=== PATIENT | male | born 1955 | race African-American/Black ===

== ENCOUNTER 2017-10-18 03:57 | Emergency (ER) | payer OTHER ==
--- NOTE | 2017-10-18 04:21 | ER Document Report ---
ED GI/ <ALLEN CHICAS - Last Filed: 10/18/17 07:53> - General TRAVEL OUTSIDE OF THE [place] IN LAST 30 DAYS: No <KEDAR SCHULTZ - Last Filed: 10/18/17 19:31> - General Chief Complaint: Urinary Problem Stated Complaint: POSSIBLE BLOOD IN URINE Time Seen by Provider: 10/18/17 04:14 Notes: Patient is a 61-year-old male comes emergency department for chief complaint of hematuria. He has noticed it for the past couple of days. He does report some minimal tenderness in his right flank area as well. He denies nausea or vomiting, abdominal pain, dysuria, fever or chills. He states he thinks he has had kidney stones before but is not certain. He smokes. Limited past medical history including BPH, surgeries (appendix, gallbladder, hernia), and he is a smoker. No daily meds. (KATJA SCHULTZAN) - Related Data Allergies/Adverse Reactions: No Known Allergies Allergy (Verified 08/02/16 00:53) Home Medications: Current Home Medications No Home Medications 10/18/17 [History] Past Medical History - General Information source: Patient - Social History Smoking Status: Current Every Day Smoker Smoking Education Provided: Yes - <3 min Frequency of alcohol use: None Drug Abuse: None Lives with: Spouse/Significant other Family History: Reviewed & Not Pertinent Patient has suicidal ideation: No Patient has homicidal ideation: No Renal/ Medical History: Reports: Hx Benign Prostatic Hyperplasia, Hx Kidney Stones. Denies: Hx Peritoneal Dialysis Past Surgical History: Reports: Hx Appendectomy, Hx Cholecystectomy, Hx Nose Surgery - Immunizations Hx Diphtheria, Pertussis, Tetanus Vaccination: Yes <KEDAR SCHULTZ - Last Filed: 10/18/17 19:31> Review of Systems - Review of Systems Constitutional: No symptoms reported EENT: No symptoms reported Cardiovascular: No symptoms reported Respiratory: No symptoms reported Gastrointestinal: No symptoms reported Genitourinary: See HPI Male Genitourinary: No symptoms reported Musculoskeletal: No symptoms reported Skin: No symptoms reported Hematologic/Lymphatic: No symptoms reported Neurological/Psychological: No symptoms reported <KEDAR SCHULTZ - Last Filed: 10/18/17 19:31> Physical Exam - Vital signs Interpretation: Normal - General General appearance: Appears well, Alert In distress: None - HEENT Head: Normocephalic, Atraumatic Eyes: Normal Pupils: PERRL Mouth/Lips: Normal Mucous membranes: Normal Pharynx: Normal Neck: Normal - Respiratory Respiratory status: No respiratory distress Chest status: Nontender Breath sounds: Normal. No: Decreased air movement, Wheezing Chest palpation: Normal - Cardiovascular Rhythm: Regular Heart sounds: Normal auscultation Murmur: No - Abdominal Inspection: Normal Distension: No distension Bowel sounds: Normal Tenderness: Nontender. No: Tender, Guarding Organomegaly: No organomegaly - Back Back: Normal, Nontender. No: Tender, CVA tenderness - Extremities General upper extremity: Normal inspection, Nontender, Normal ROM, Normal strength General lower extremity: Normal inspection, Nontender, Normal ROM, Normal strength - Neurological Neuro grossly intact: Yes Cognition: Normal Orientation: AAOx4 [place] Coma Scale Eye Opening: Spontaneous [place] Coma Scale Verbal: Oriented [place] Coma Scale Motor: Obeys Commands [place] Coma Scale Total: 15 Speech: Normal Motor strength normal: LUE, RUE, LLE, RLE Sensory: Normal - Psychological Associated symptoms: Normal affect, Normal mood - Skin Skin Temperature: Warm Skin Moisture: Dry Skin Color: Normal <ANTOINE,KEDAR - Last Filed: 10/18/17 19:31> - Vital signs Vitals: Temp Pulse Resp BP Pulse Ox 98.2 F 75 16 132/71 H 99 10/18/17 03:59 10/18/17 03:59 10/18/17 03:59 10/18/17 03:59 10/18/17 03:59 Course - Laboratory Result Diagrams: 10/18/17 04:42 10/18/17 04:42 <ALLEN CHICAS - Last Filed: 10/18/17 07:53> - Laboratory Result Diagrams: 10/18/17 04:42 10/18/17 04:42 <KEDAR SCHULTZ - Last Filed: 10/18/17 19:31> - Re-evaluation Re-evalutation: 10/18/17 07:53 Dr. German, urologist Hardeep Yang called back and was informed of all results. He states that he can follow-up in 1 week and to send him home with antibiotics, a copy of the CAT scan disc and report to follow-up with him in the office. Urine culture is pending at this time. (ALLEN CHICAS) Patient calm and well-appearing. No CVA tenderness. Vital signs unremarkable. CBC does not show anemia, kidney functioning is normal. Patient states his pain is 1 out of 5 in the right flank, intermittent. He definitely has hematuria, this was tested, show some white blood cells and reagan hematuria with proteinuria. CAT scan was performed to further evaluate for stone or other abnormality because of flank pain and hematuria. CT without contrast shows questionable cyst versus severe obstruction, patient' s presentation does not suggest severe obstruction. Patient states that he remembers he was told that his kidney "has some weird blood supply to it". He cannot tell me any other details. Discussed with Dr. Barone, recommends CAT scan of the abdomen and pelvis with IV contrast to help better characterize. ( KEDAR SCHULTZ) - Vital Signs Vital signs: Temp Pulse Resp BP Pulse Ox 97.9 F 72 16 137/99 H 100 10/18/17 08:06 10/18/17 08:06 10/18/17 08:06 10/18/17 08:06 10/18/17 08:06 - Laboratory Laboratory results interpreted by me: 10/18/17 10/18/17 10/18/17 04:42 04:42 05:11 WBC 3.9 L Chloride 108 H Urine Protein 100 H Urine Blood LARGE H Discharge <ALLEN CHICAS - Last Filed: 10/18/17 07:53> <KEDAR SCHULTZ - Last Filed: 10/18/17 19:31> - Discharge Clinical Impression: Ureteral obstruction Hydronephrosis Qualifiers: Hydronephrosis type: with ureteropelvic junction obstruction Qualified Code(s) : Q62.11 - Congenital occlusion of ureteropelvic junction Condition: Stable Disposition: HOME, SELF-CARE Additional Instructions: Return immediately for any new or worsening symptoms. Follow up with urologist in 1 week exactly! You can go to the one below or Dr. German is who I consulted with today on your case and he is in [facility] Office [address] [place], [place] [phone] [place] [facility] [address] [facility]. [place], [place] [phone]. Referrals: MONSTER GERMAN MD [NO LOCAL MD] - Follow up as needed
[2017-10-18 04:54] LABS: ABSOLUTE EOSINOPHILS # (AUTO) 0.1 10^3/uL (0.0-0.6); ABSOLUTE LYMPHOCYTES (AUTO) 1.2 10^3/uL (0.5-4.7); ABSOLUTE MONOCYTES (AUTO) 0.3 10^3/uL (0.1-1.4); ABSOLUTE NEUT (AUTO) 2.3 10^3/uL (1.7-8.2); BASOPHILS % (AUTO) 0.3 % (0-2); EOSINOPHILS % (AUTO) 2.4 % (0-6); HEMATOCRIT 41.2 % (37.9-51.0); HEMOGLOBIN 14.1 g/dL (13.5-17.0); HGB HCT DIFFERENCE 1.1; LYMPHOCYTES % (AUTO) 30.5 % (13-45); MEAN CORPUSCULAR HEMOGLOBIN 31.9 pg (27.0-33.4); MEAN CORPUSCULAR HGB CONC 34.3 g/dL (32.0-36.0); MEAN CORPUSCULAR VOLUME 93 fl (80-97); MONOCYTES % (AUTO) 8.5 % (3-13); RED BLOOD COUNT 4.42 10^6/uL (4.35-5.55); RED CELL DISTRIBUTION WIDTH 13.2 % (11.5-14.0); SEGMENTED NEUTROPHILS % (AUTO) 58.3 % (42-78); WHITE BLOOD COUNT 3.9 10^3/uL (4.0-10.5)
[2017-10-18 05:03] LABS: ANION GAP 10 (5-19); BLOOD UREA NITROGEN 16 mg/dL (7-20); CALCIUM 9.4 mg/dL (8.4-10.2); CARBON DIOXIDE 25 mmol/L (22-30); CHLORIDE 108 mmol/L (98-107); CREATININE RESULT 0.89 mg/dL (0.52-1.25); GLUCOSE 96 mg/dL (75-110)
[2017-10-18 06:00] LABS: AMORPHOUS SEDIMENT,URINE TRACE /HPF; APPEARANCE,URINE SLIGHTLY-CLOUDY; BILIRUBIN,URINE NEGATIVE (NEGATIVE); GLUCOSE, URINE NEGATIVE (NEGATIVE); KETONES,URINE NEGATIVE (NEGATIVE); LEUKOCYTE ESTERASE,URINE NEGATIVE (NEGATIVE); NITRITE,URINE NEGATIVE (NEGATIVE); PROTEIN,URINE 100 mg/dL (NEGATIVE); URINE SPECIFIC GRAVITY 1.015; UROBILINOGEN,URINE NEGATIVE mg/dL (<2.0)
--- NOTE | 2017-10-18 06:18 | RADIOLOGY REPORT (SQ) ---
EXAM DESCRIPTION: CT LTD RENAL STONE PROTOCOL ON CLINICAL HISTORY: 61 years Male, FLANK PAIN, HEMATURIA COMPARISON: None. TECHNIQUE: No contrast. Coronal and sagittal reformat. This exam was performed according to our departmental dose-optimization program, which includes automated exposure control, adjustment of the mA and/or kV according to patient size and/or use of iterative reconstruction technique. FINDINGS: Severe hydronephrosis on the right suggest ureteropelvic junction obstruction. There may be associated parapelvic cyst measuring up to 8.6 cm. no significant stone. Mild bibasal atelectasis or scar. Left lateral hepatic likely benign cysts or hemangiomata measure up to 1.1 cm each. Minimal hiatal hernia. Cholecystectomy clips. Atherosclerosis. Mild spondylosis between the L4 and S1 levels. Unenhanced chxyr-[id number]-[id number] structures and musculoskeleton appear otherwise grossly intact. IMPRESSION: Severe right UPJ obstruction pattern. Differential diagnosis includes large parapelvic cysts. Contrast CT/IVP evaluation and/or urology consultation recommended.
--- NOTE | 2017-10-18 07:23 | RADIOLOGY REPORT (SQ) ---
EXAM DESCRIPTION: CT ABD/PELVIS WITH IV ONLY CLINICAL HISTORY: 61 years Male, evaluate right kidney; ?cyst vs hydro COMPARISON: CT, same day. TECHNIQUE: IV contrast. Coronal and sagittal reformatted. This exam was performed according to our departmental dose-optimization program, which includes automated exposure control, adjustment of the mA and/or kV according to patient size and/or use of iterative reconstruction technique. FINDINGS: Severe right hydronephrosis appears due to ureteropelvic junction obstruction. No stone. Postexcretion imaging show minimal layering of fluid in only two of the posterior right renal expanded calyces. No contrast identified in the right ureter. Likely benign 1.1 cm cyst of the right renal upper pole. There is moderate compression of cortical parenchyma. Hydronephrotic right kidney measures 15.4 cm compared with 12.67 m on the left. Minimal right perinephric fat stranding. Cholecystectomy. Atherosclerosis. Mild dilated left intrahepatic ducts and mildly dilated pancreatic duct measuring 0.4 cm in diameter postcholecystectomy and with moderate anterior displacement of the pancreatic head due to right sided severe hydronephrosis. Small likely benign cysts of the left hepatic lobe measuring up to 1.0 cm each. Minimal bibasilar atelectasis or scar. Inferior chest, spleen, adrenals, gastrointestinal tract, pelvic organs, vasculature, lymphatics, and musculoskeleton appear otherwise unremarkable. IMPRESSION: Moderate-severe grade right UPJ obstruction.
[2017-10-18 08:19] VITALS: BP 137/99
== END 2017-10-18 08:19 | disposition home or self-care (01) ==
LOC: ER 03:57
DX: Q62.11 Congenital occlusion of ureteropelvic junction (principal); R31.0 Gross hematuria; R80.9 Proteinuria, unspecified; R10.9 Unspecified abdominal pain; F17.200 Nicotine dependence, unspecified, uncomplicated; Z71.6 Tobacco abuse counseling
CPT/HCPCS: 36415; 74177; 76380; 80048; 81001; 85025; 87086; 99284

== ENCOUNTER 2019-09-23 01:01 | Emergency (ER) | payer OTHER ==
[2019-09-23 03:20] LABS: ALBUMIN 3.3 g/dL (3.5-5.0); ALKALINE PHOSPHATASE 84 U/L (38-126); ANION GAP 9 (5-19); ASPARTATE AMINO TRANSFERASE 39 U/L (17-59); BILIRUBIN,TOTAL 0.3 mg/dL (0.2-1.3); BLOOD UREA NITROGEN 24 mg/dL (7-20); CALCIUM 8.5 mg/dL (8.4-10.2); CARBON DIOXIDE 21 mmol/L (22-30); CHLORIDE 106 mmol/L (98-107); GLUCOSE 93 mg/dL (75-110); POTASSIUM 4.4 mmol/L (3.6-5.0); TOTAL PROTEIN 6.3 g/dL (6.3-8.2)
[2019-09-23 03:22] LABS: MEAN CORPUSCULAR HEMOGLOBIN 17.6 pg (27.0-33.4); MEAN CORPUSCULAR HGB CONC 29.4 g/dL (32.0-36.0); PLATELET COUNT 182 10^3/uL (150-450); RED BLOOD COUNT 1.81 10^6/uL (4.35-5.55); RED CELL DISTRIBUTION WIDTH 21.4 % (11.5-14.0)
[2019-09-23 03:34] LABS: APPEARANCE,URINE CLEAR; BILIRUBIN,URINE NEGATIVE (NEGATIVE); COLOR,URINE STRAW; GLUCOSE, URINE NEGATIVE (NEGATIVE); KETONES,URINE NEGATIVE (NEGATIVE); LEUKOCYTE ESTERASE,URINE NEGATIVE (NEGATIVE); NITRITE,URINE NEGATIVE (NEGATIVE); PROTEIN,URINE NEGATIVE (NEGATIVE); UROBILINOGEN,URINE NEGATIVE mg/dL (<2.0)
[2019-09-23 03:53] LABS: ABSOLUTE LYMPHOCYTES# (MANUAL) 0.8 10^3/uL (0.5-4.7); ABSOLUTE MONOCYTES # (MANUAL) 0.1 10^3/uL (0.1-1.4); BASOPHILS % (MANUAL) 0 % (0-2); EOSINOPHILS % (MANUAL) 0 % (0-6); LYMPHOCYTES % (MANUAL) 21 % (13-45); MONOCYTES % (MANUAL) 3 % (3-13); SEGMENTED NEUTROPHILS % (MAN) 76 % (42-78); TOTAL CELLS COUNTED 100
[2019-09-23 03:56] LABS: ANISOCYTOSIS 3+; HYPOCHROMASIA 3+; POIKILOCYTOSIS 1+; POLYCHROMASIA 1+; TOXIC GRANULATION SLIGHT
[2019-09-23 03:57] LABS: OVALOCYTES SLIGHT; PLATELET COMMENT ADEQUATE; SCHISTOCYTES SLIGHT; TEAR DROP CELLS SLIGHT
[2019-09-23 03:59] LABS: MEAN CORPUSCULAR VOLUME 60 fl (80-97)
[2019-09-23 04:01] LABS: HEMOGLOBIN 3.2 g/dL (13.5-17.0)
[2019-09-23] MEDS ORDERED: NORMAL SALINE 250 ML IV PRN (04:01)
[2019-09-23 04:02] LABS: HEMATOCRIT 10.8 % (37.9-51.0)
--- NOTE | 2019-09-23 04:02 | ER Document Report ---
ED General - General Chief Complaint: Shortness Of Breath Stated Complaint: SHORTNESS OF BREATH Time Seen by Provider: 09/23/19 03:22 Primary Care Provider: REBECCA KOHLER [Primary Care Provider] - Follow up as needed Mode of Arrival: Ambulatory Information source: Patient Notes: Patient is a 63-year-old male presenting to the emergency department with chief complaint of shortness of breath. He reports that just prior to arrival he had a syncopal episode at home has been feeling very fatigued lately. He states that he has never had a syncopal episode in the past. He reports lately he has been having very dark stools and intermittently has had rectal bleeding. He denies any rectal pain. He does report alcohol use but states he only drinks a few times per week. He denies any drug use. TRAVEL OUTSIDE OF THE [place] IN LAST 30 DAYS: No - Related Data Allergies/Adverse Reactions: No Known Allergies Allergy (Verified 08/02/16 00:53) Home Medications: albuterol inhaler prn. aleve prn. tylenol prn Past Medical History - General Information source: Patient - Social History Smoking Status: Current Every Day Smoker Family History: Reviewed & Not Pertinent Patient has suicidal ideation: No Patient has homicidal ideation: No Renal/ Medical History: Reports: Hx Benign Prostatic Hyperplasia, Hx Kidney Stones. Denies: Hx Peritoneal Dialysis Past Surgical History: Reports: Hx Appendectomy, Hx Cholecystectomy, Hx Nose Surgery - Immunizations Hx Diphtheria, Pertussis, Tetanus Vaccination: Yes Review of Systems - Review of Systems Constitutional: denies: Chills, Fever EENT: No symptoms reported Cardiovascular: No symptoms reported Respiratory: Cough, Short of breath Gastrointestinal: Blood streaked bowels, Black stools Genitourinary: No symptoms reported Male Genitourinary: No symptoms reported Musculoskeletal: No symptoms reported Skin: No symptoms reported Hematologic/Lymphatic: No symptoms reported Neurological/Psychological: No symptoms reported Physical Exam - Vital signs Vitals: Temp Pulse Resp BP Pulse Ox 98.1 F 104 H 24 H 127/61 H 100 09/23/19 01:16 09/23/19 01:16 09/23/19 01:16 09/23/19 01:16 09/23/19 01:16 - Notes Notes: PHYSICAL EXAMINATION: GENERAL: Well-appearing, well-nourished. HEAD: Atraumatic, normocephalic. EYES: Pupils equal round and reactive to light, extraocular movements intact, sclera anicteric, conjunctiva are normal. ENT: Nares patent, oropharynx clear without exudates. Moist mucous membranes. NECK: Normal range of motion, supple without lymphadenopathy LUNGS: Mild expiratory wheezes noted bilaterally, normal work of breathing. HEART: Regular rate and rhythm without murmurs ABDOMEN: Soft, mildly tender, nondistended abdomen. No guarding, no rebound. No masses appreciated. Musculoskeletal: Normal range of motion, no pitting or edema. No cyanosis. NEUROLOGICAL: Cranial nerves grossly intact. Normal speech, normal gait. Normal sensory, motor exams PSYCH: Normal mood, normal affect. SKIN: Warm, Dry, normal turgor, no rashes or lesions noted. Course - Re-evaluation Re-evalutation: Laboratory 09/23/19 09/23/19 09/23/19 02:09 02:09 02:55 WBC Cancelled 4.0 RBC Cancelled 1.81 L Hgb Cancelled 3.2 L* Hct Cancelled 10.8 L* MCV Cancelled 60 L MCH Cancelled 17.6 L MCHC Cancelled 29.4 L RDW Cancelled 21.4 H Plt Count Cancelled 182 Lymph % (Auto) Cancelled Not Reportable [place] % (Auto) Cancelled Not Reportable Eos % (Auto) Cancelled Not Reportable Baso % (Auto) Cancelled Not Reportable Absolute Neuts (auto) Cancelled Not Reportable Absolute Lymphs (auto) Cancelled Not Reportable Absolute Monos (auto) Cancelled Not Reportable Absolute Eos (auto) Cancelled Not Reportable Absolute Basos (auto) Cancelled Not Reportable Total Counted 100 Seg Neutrophils % Cancelled Not Reportable Seg Neuts % (Manual) 76 Lymphocytes % (Manual) 21 Monocytes % (Manual) 3 Eosinophils % (Manual) 0 Basophils % (Manual) 0 Abs Neuts (Manual) 3.0 Abs Lymphs (Manual) 0.8 Abs Monocytes (Manual) 0.1 Absolute Eos (Manual) 0.0 Abs Basophils (Manual) 0.0 Toxic Granulation SLIGHT Platelet Estimate Cancelled Platelet Comment ADEQUATE Polychromasia 1+ Hypochromasia 3+ Poikilocytosis 1+ Anisocytosis 3+ Microcytosis 3+ Tear Drop Cells SLIGHT Ovalocytes SLIGHT Schistocytes SLIGHT PT INR APTT Sodium Cancelled Potassium Cancelled Chloride Cancelled Carbon Dioxide Cancelled Anion Gap Cancelled BUN Cancelled Creatinine Cancelled Est GFR ( Amer) Cancelled Est GFR (Non-Af Amer) Cancelled Est GFR (MDRD) Non-Af Cancelled Glucose Cancelled Calcium Cancelled Total Bilirubin Cancelled Direct Bilirubin Cancelled Neonat Total Bilirubin Cancelled Neonat Direct Bilirubin Cancelled Neonat Indirect Bili Cancelled AST Cancelled ALT Cancelled Alkaline Phosphatase Cancelled Troponin I NT-Pro-B Natriuret Pep Total Protein Cancelled Albumin Cancelled EGFR Cancelled Urine Color Urine Appearance Urine pH Ur Specific [place] Urine Protein Urine Glucose (UA) Urine Ketones Urine Blood Urine Nitrite Urine Bilirubin Urine Urobilinogen Ur Leukocyte Esterase Urine WBC (Auto) Urine Mucus (Auto) Urine Ascorbic Acid POC Stool Occult Blood Slides for Path Review Cancelled Blood Type Blood Type Confirm Antibody Screen Crossmatch 09/23/19 09/23/19 09/23/19 02:55 03:23 03:35 WBC RBC Hgb Hct MCV MCH MCHC RDW Plt Count Lymph % (Auto) [place] % (Auto) Eos % (Auto) Baso % (Auto) Absolute Neuts (auto) Absolute Lymphs (auto) Absolute Monos (auto) Absolute Eos (auto) Absolute Basos (auto) Total Counted Seg Neutrophils % Seg Neuts % (Manual) Lymphocytes % (Manual) Monocytes % (Manual) Eosinophils % (Manual) Basophils % (Manual) Abs Neuts (Manual) Abs Lymphs (Manual) Abs Monocytes (Manual) Absolute Eos (Manual) Abs Basophils (Manual) Toxic Granulation Platelet Estimate Platelet Comment Polychromasia Hypochromasia Poikilocytosis Anisocytosis Microcytosis Tear Drop Cells Ovalocytes Schistocytes PT INR APTT Sodium 136.4 L Potassium 4.4 Chloride 106 Carbon Dioxide 21 L Anion Gap 9 BUN 24 H Creatinine 0.98 Est GFR ( Amer) > 60 Est GFR (Non-Af Amer) Est GFR (MDRD) Non-Af > 60 Glucose 93 Calcium 8.5 Total Bilirubin 0.3 Direct Bilirubin 0.0 Neonat Total Bilirubin Not Reportable Neonat Direct Bilirubin Not Reportable Neonat Indirect Bili Not Reportable AST 39 ALT 37 Alkaline Phosphatase 84 Troponin I NT-Pro-B Natriuret Pep Total Protein 6.3 Albumin 3.3 L EGFR Urine Color STRAW Urine Appearance CLEAR Urine pH 5.0 Ur Specific [place] 1.010 Urine Protein NEGATIVE Urine Glucose (UA) NEGATIVE Urine Ketones NEGATIVE Urine Blood NEGATIVE Urine Nitrite NEGATIVE Urine Bilirubin NEGATIVE Urine Urobilinogen NEGATIVE Ur Leukocyte Esterase NEGATIVE Urine WBC (Auto) 0 Urine Mucus (Auto) RARE Urine Ascorbic Acid NEGATIVE POC Stool Occult Blood Slides for Path Review Blood Type AB POSITIVE Blood Type Confirm Antibody Screen NEGATIVE Crossmatch See Detail 09/23/19 09/23/19 09/23/19 03:35 03:53 03:53 WBC RBC Hgb Hct MCV MCH MCHC RDW Plt Count Lymph % (Auto) [place] % (Auto) Eos % (Auto) Baso % (Auto) Absolute Neuts (auto) Absolute Lymphs (auto) Absolute Monos (auto) Absolute Eos (auto) Absolute Basos (auto) Total Counted Seg Neutrophils % Seg Neuts % (Manual) Lymphocytes % (Manual) Monocytes % (Manual) Eosinophils % (Manual) Basophils % (Manual) Abs Neuts (Manual) Abs Lymphs (Manual) Abs Monocytes (Manual) Absolute Eos (Manual) Abs Basophils (Manual) Toxic Granulation Platelet Estimate Platelet Comment Polychromasia Hypochromasia Poikilocytosis Anisocytosis Microcytosis Tear Drop Cells Ovalocytes Schistocytes PT INR APTT Sodium Potassium Chloride Carbon Dioxide Anion Gap BUN Creatinine Est GFR ( Amer) Est GFR (Non-Af Amer) Est GFR (MDRD) Non-Af Glucose Calcium Total Bilirubin Direct Bilirubin Neonat Total Bilirubin Neonat Direct Bilirubin Neonat Indirect Bili AST ALT Alkaline Phosphatase Troponin I 0.013 NT-Pro-B Natriuret Pep 424 H Total Protein Albumin EGFR Urine Color Urine Appearance Urine pH Ur Specific [place] Urine Protein Urine Glucose (UA) Urine Ketones Urine Blood Urine Nitrite Urine Bilirubin Urine Urobilinogen Ur Leukocyte Esterase Urine WBC (Auto) Urine Mucus (Auto) Urine Ascorbic Acid POC Stool Occult Blood Slides for Path Review Blood Type Blood Type Confirm AB POSITIVE Antibody Screen Crossmatch 09/23/19 09/23/19 04:38 05:20 WBC RBC Hgb Hct MCV MCH MCHC RDW Plt Count Lymph % (Auto) [place] % (Auto) Eos % (Auto) Baso % (Auto) Absolute Neuts (auto) Absolute Lymphs (auto) Absolute Monos (auto) Absolute Eos (auto) Absolute Basos (auto) Total Counted Seg Neutrophils % Seg Neuts % (Manual) Lymphocytes % (Manual) Monocytes % (Manual) Eosinophils % (Manual) Basophils % (Manual) Abs Neuts (Manual) Abs Lymphs (Manual) Abs Monocytes (Manual) Absolute Eos (Manual) Abs Basophils (Manual) Toxic Granulation Platelet Estimate Platelet Comment Polychromasia Hypochromasia Poikilocytosis Anisocytosis Microcytosis Tear Drop Cells Ovalocytes Schistocytes PT 22.8 H INR 1.98 APTT 37.1 H Sodium Potassium Chloride Carbon Dioxide Anion Gap BUN Creatinine Est GFR ( Amer) Est GFR (Non-Af Amer) Est GFR (MDRD) Non-Af Glucose Calcium Total Bilirubin Direct Bilirubin Neonat Total Bilirubin Neonat Direct Bilirubin Neonat Indirect Bili AST ALT Alkaline Phosphatase Troponin I NT-Pro-B Natriuret Pep Total Protein Albumin EGFR Urine Color Urine Appearance Urine pH Ur Specific [place] Urine Protein Urine Glucose (UA) Urine Ketones Urine Blood Urine Nitrite Urine Bilirubin Urine Urobilinogen Ur Leukocyte Esterase Urine WBC (Auto) Urine Mucus (Auto) Urine Ascorbic Acid POC Stool Occult Blood POSITIVE Slides for Path Review Blood Type Blood Type Confirm Antibody Screen Crossmatch Chest X-Ray 09/23/19 03:54 IMPRESSION: No acute cardiopulmonary process copyright 2010 [employer]- All Rights Reserved Patient's hemoglobin is 3.2. This was confirmed by the lab with a redraw prior to release. Patient is asymptomatic other than the previous syncopal episode. His vital signs are within normal limits. He has not had noted hypotension or tachycardia. Orders placed to transfuse PRBCs and to start a Protonix drip and Protonix bolus. Will initiate transfer to tertiary facility with gastroenterology coverage. 09/23/19 05:45 Transfer accepted to [facility], Dr. Russo accepting. 09/23/19 07:36 Patient reevaluated, patient alert, oriented, answering all questions verbally. Vital signs are stable at this time. Heart rate is 83, blood pressure 128/87. Patient stable for transport to [facility] at this time. - Vital Signs Vital signs: Temp Pulse Resp BP Pulse Ox 98.1 F 82 19 120/87 H 99 09/23/19 07:06 09/23/19 07:06 09/23/19 07:06 09/23/19 07:06 09/23/19 07:06 - Laboratory Result Diagrams: 09/23/19 02:55 09/23/19 02:55 Laboratory results interpreted by me: 09/23/19 09/23/19 09/23/19 02:55 02:55 03:35 RBC 1.81 L Hgb 3.2 L* Hct 10.8 L* MCV 60 L MCH 17.6 L MCHC 29.4 L RDW 21.4 H PT APTT Sodium 136.4 L Carbon Dioxide 21 L BUN 24 H NT-Pro-B Natriuret Pep Albumin 3.3 L Crossmatch See Detail 09/23/19 09/23/19 03:53 04:38 RBC Hgb Hct MCV MCH MCHC RDW PT 22.8 H APTT 37.1 H Sodium Carbon Dioxide BUN NT-Pro-B Natriuret Pep 424 H Albumin Crossmatch Discharge - Discharge Clinical Impression: GI bleed Qualifiers: GI bleed type/associated pathology: melena Qualified Code(s): K92.1 - Melena Anemia Qualifiers: Anemia type: unspecified type Qualified Code(s): D64.9 - Anemia, unspecified Condition: Stable Disposition: [facility] [Primary Care Provider] - Follow up as needed
--- NOTE | 2019-09-23 04:28 | RADIOLOGY REPORT (SQ) ---
EXAM DESCRIPTION: XR CHEST 1 VIEW COMPLETED DATE/TME: 09/23/2019 03:54 CLINICAL HISTORY: 63 years, Male, syncope COMPARISON: None. NUMBER OF VIEWS: 1 TECHNIQUE: Portable chest LIMITATIONS: None. FINDINGS: The heart size is normal. Minimal scarring in the right perihilar region. Lungs are otherwise clear. No pneumothorax IMPRESSION: No acute cardiopulmonary process copyright 2010 [employer]- All Rights Reserved
[2019-09-23 04:55] LABS: INTERNATIONAL RATION (INR) 1.98; PARTIAL THROMBOPLASTIN TIME 37.1 SEC (23.5-35.8); PROTHROMBIN TIME 22.8 SEC (11.4-15.4)
[2019-09-23] MEDS ORDERED: PANTOPRAZOLE SODIUM 40 MG VIAL IV ONE (05:24)
[2019-09-23] MEDS ORDERED: PANTOPRAZOLE SODIUM 40 MG VIAL IV PRN (05:26)
[2019-09-23] MEDS ORDERED: IPRATROPIUM/ALBUTEROL 0.5-2.5 MG/3 ML AMPUL NEB ONE (05:27)
--- NOTE | 2019-09-23 07:44 | RADIOLOGY REPORT (SQ) ---
EXAM DESCRIPTION: CT abdomen and pelvis with contrast September 23, 2019 09/23/2019 6:38 AM [employer] CLINICAL HISTORY: 63 years, Male, abd pain/rectal bleed COMPARISON: CT abdomen and pelvis with contrast October 18, 2017 TECHNIQUE: Following the administration of intravenous contrast, volumetric CT acquisition was performed through the abdomen and pelvis. Images in the axial and coronal planes were presented for interpretation This exam was performed according to our departmental dose-optimization program, which includes automated exposure control, adjustment of the mA and/or kV according to patient size and/or use of iterative reconstruction technique. FINDINGS: The visualized portions of the lung bases are clear. The cardiomediastinal structures are within normal limits. Within the upper abdomen, the liver and spleen are normal in size and morphology. There are multiple subcentimeter low-density lesions in the left hepatic lobe on axial image 13 The gallbladder is surgically absent. The intra/extrahepatic biliary tree is normal in appearance. The pancreas and adrenal glands are normal. There is hydronephrotic atrophy of the right kidney with moderate distention of the right renal pelvis. The right ureter is normal in appearance. The left kidney is normal in size. The left ureter is normal in course and caliber. There are no left renal calculi or ureteral stones. The stomach and small intestines are within normal limits without evidence of bowel dilation or wall thickening. The appendix is well visualized and normal. The colon is stool filled and unremarkable. Within the pelvis, the bladder and rectum are normal. There are no rectal masses or sigmoid diverticula. There are small subcutaneous fluid collection along the intergluteal cleft best seen on axial image 80 measuring up to 2.8 x 1.1 cm (previously 1.2 x 0.8 cm). There are at least two additional smaller collections. The prostate is age-appropriate. There are no pathologically enlarged inguinal, retroperitoneal, portacaval, or mesenteric lymph nodes. The soft tissue structures of the abdominal wall are normal. The visualized osseous structures are within normal limits for the patient's age. The abdominal aorta and its primary branches are normal in course and caliber. Limited evaluation of the venous structures demonstrates no gross abnormalities. IMPRESSION: 1. No abnormal parenchymal masses or colonic diverticula. 2. Slight interval increase in size of subcutaneous fluid collection along the intergluteal cleft, may represent sebaceous cysts. Correlation with exam is suggested. 3. 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
--- NOTE | 2019-09-23 08:29 | ER Document Report ---
Doctor's Note Notes: 09/23/19 08:28 Transport is at bedside, patient remains stable for transfer.
[2019-09-23 08:38] VITALS: BP 136/84
--- NOTE | 2019-09-24 12:07 | EKG REPORT ---
SEVERITY:- ABNORMAL ECG - SINUS RHYTHM PROBABLE LEFT VENTRICULAR HYPERTROPHY ANTERIOR ST ELEVATION, PROBABLY DUE TO LVH : Confirmed by: Mi Chandra 24-Sep-2019 12:05:48
[2019-09-27 13:18] LABS: PATH REVIEW PATHOLOGIST REVIEWED
== END 2019-09-23 08:38 | disposition short-term general hospital (02) ==
LOC: ER 01:01
DX: K92.1 Melena (principal); D64.9 Anemia, unspecified; R06.02 Shortness of breath; R53.83 Other fatigue; R05 Cough; F17.200 Nicotine dependence, unspecified, uncomplicated
CPT/HCPCS: 93005; 94640; 99285; 96365; 96366; 86900; 86901; 36415; 36430; 86850; 85025; 85610; 85730; 80053; 81001; 84484; 86920; 83880; 71045; 74177; 93010; P9016; C9113; J7050; J7620

== ENCOUNTER → 2020-01-12 | Outpatient (CLI) | payer OTHER ==
--- NOTE | 2020-01-12 14:25 | RADIOLOGY REPORT (SQ) ---
EXAM DESCRIPTION: CT LUNG CANCER SCREENING COMPLETED DATE/TIME: 01/12/2020 1:01 pm REASON FOR STUDY: Z87.891 PERSONAL HISTORY OF NICOTINE DEPENDENCE Z87.891 PERSONAL HISTORY OF NICOT INE DEPENDENCE Has the patient had a Chest CT scan within the past year? N Was the patient offered tobacco cessation counseling? Y Was the patient engaged in shared decision making for this test? Y Does the patient have signs or symptoms of Lung Cancer? N Is the patient a smoker? Y How many pack years? 30 How many years since quitting smoking? 0 Patients age: 64 COMPARISON: CT abdomen pelvis 09/23/2019 TECHNIQUE: Low Dose CT scan performed of the chest without intravenous contrast for purposes of scre ening for lung cancer. Images reviewed with lung, soft tissue and bone windows. Reconstructed coron al and sagittal MPR images reviewed. All images stored on PACS. All CT scanners at this facility use dose modulation, iterative reconstruction, and/or weight based d osing when appropriate to reduce radiation dose to as low as reasonably achievable (ALARA). [facility]: Dose Right [facility]: CareDose [facility]: Dose Right [facility]: Teradose 4D [facility]: Redux RADIATION DOSE: CT Rad equipment meets quality standard of care and radiation dose reduction techniq ues were employed. CTDIvol: NaN mGy. DLP: 0 mGy-cm. mGy. . LIMITATIONS: None FINDINGS: LUNGS AND PLEURA: No masses or nodules. No pleural effusions or calcifications. No pne umothorax. Advanced changes of obstructive lung disease throughout. HILAR AND MEDIASTINAL STRUCTURES: No identified masses. No abnormal nodes. HEART AND VASCULAR STRUCTURES: No aortic aneurysm. No pericardial effusion. No cardiac devices. CORONARY ARTERY CALCIFICATIONS: No significant calcifications. UPPER ABDOMEN, THYROID, BONES, OTHER SOFT TISSUES: No significant findings. IMPRESSION: NO SIGNIFICANT FINDING IN THE LUNGS ON NON-CONTRASTED CHEST CT. OBSTRUCTIVE LUNG DISEASE LUNGRADS: LUNGRADS: 1 NEGATIVE. NO NODULES, OR DEFINITELY BENIGN NODULES MODIFIER: NONE RECOMMENDATION: Continue annual screening with LDCT in 12 months. COMMENT: CRITERIA: No lung nodules. Nodules with specific calcifications: Complete, central, popcorn, concentric rings and fat containin g nodules. TECHNICAL DOCUMENTATION: JOB ID: [id number] Quality ID # [id number]: Final reports with documentation of one or more dose reduction techniques (e.g., Au tomated exposure control, adjustment of the mA and/or kV according to patient size, use of iterative reconstruction technique) 2010 [facility] Radiology Reading location - IP/workstation name: [id number]
== END ==
LOC: RAD 12:48
PROVIDERS: ATTEND Family Medicine
DX: Z12.2 Encounter for screening for malignant neoplasm of respiratory organs (principal); Z87.891 Personal history of nicotine dependence
CPT/HCPCS: G0297

== ENCOUNTER 2020-03-02 21:37 | Emergency (ER) | payer OTHER ==
--- NOTE | 2020-03-02 22:53 | ER Document Report ---
ED Medical Screen (RME) - General Chief Complaint: Testicular Pain Stated Complaint: TESTICULAR SWELLING Time Seen by Provider: 03/02/20 22:48 Primary Care Provider: NEELAM POLANCO DO [Primary Care Provider] - Follow up as needed Notes: 64-year-old male with chief complaint of swelling to the testicles, left greater than right. He states this is been present for around 2 weeks, he also admits that he has felt rundown, he is eating less, he is losing weight. He states he was seen on Friday by urgent care, had an ultrasound scheduled outpatient but this has not been performed yet, he was also placed on Bactrim and he has been taking this. He denies redness, he states the area is tender because it is swollen, he denies abdominal pain or flank pain, he denies fever or vomiting. TRAVEL OUTSIDE OF THE [place] IN LAST 30 DAYS: No - Related Data Allergies/Adverse Reactions: No Known Allergies Allergy (Verified 08/02/16 00:53) Home Medications: Sulfa Past Medical History Renal/ Medical History: Reports: Hx Benign Prostatic Hyperplasia, Hx Kidney Stones. Denies: Hx Peritoneal Dialysis Past Surgical History: Reports: Hx Appendectomy, Hx Cholecystectomy, Hx Nose Surgery - Immunizations Hx Diphtheria, Pertussis, Tetanus Vaccination: Yes Physical Exam - Vital signs Vitals: Temp Pulse Resp BP Pulse Ox 98.5 F 105 H 18 124/74 99 03/02/20 21:44 03/02/20 21:44 03/02/20 21:44 03/02/20 21:44 03/02/20 21:44 - Genitourinary Inspection: No: Normal - Very enlarged and very firm left scrotum/testicle and also somewhat enlarged right side. Shaft of the penis is unremarkable, no discharge or bleeding. No noted erythema or cellulitis. Course - Re-evaluation Re-evalutation: Patient with large firm essentially nontender testicle very concerning for cancer. Ultrasound pending. I have greeted and performed a rapid initial assessment of this patient. A comprehensive ED assessment and evaluation of the patient, analysis of test results and completion of the medical decision making process will be conducted by additional ED providers. - Vital Signs Vital signs: Temp Pulse Resp BP Pulse Ox 98.5 F 105 H 18 124/74 99 03/02/20 22:40 03/02/20 21:44 03/02/20 21:44 03/02/20 21:44 03/02/20 21:44 Doctor's Discharge - Discharge Referrals: NEELAM POLANCO DO [Primary Care Provider] - Follow up as needed
--- NOTE | 2020-03-03 00:45 | RADIOLOGY REPORT (SQ) ---
EXAM DESCRIPTION: US SCROTUM COMPLETED DATE/TME: 03/02/2020 22:48 CLINICAL HISTORY: 64 years, Male, firm enlarged testicles; ? cancer COMPARISON: None. TECHNIQUE: LIMITATIONS: None. FINDINGS: The testicles are inhomogeneous in echotexture, right side more apparent than left. There are also macrocalcifications within the testicles, right side much more apparent than left. Minimal blood flow was seen within the testicles with color Doppler. There are moderate sized bilateral hydroceles, containing multiple septations. There is a right-sided varicocele. The left epididymis is somewhat enlarged and inhomogeneous in echotexture, raising the possibility of epididymitis. IMPRESSION: Minimal blood flow was seen within the testicles with color Doppler. Chronic or intermittent bilateral testicular torsion must be considered. Neoplasm is unlikely. Inhomogeneous testicles, with macrocalcifications, right side more apparent than left. These could represent dystrophic calcifications, secondary to chronic/intermittent torsion or old infection. Possible left-sided epididymitis. Complex bilateral hydroceles. Right-sided varicocele. copyright 2010 [employer]- All Rights Reserved
[2020-03-03 01:16] LABS: ABSOLUTE EOSINOPHILS # (AUTO) 0.1 10^3/uL (0.0-0.6); ABSOLUTE MONOCYTES (AUTO) 0.4 10^3/uL (0.1-1.4); ABSOLUTE NEUT (AUTO) 4.9 10^3/uL (1.7-8.2); BASOPHILS % (AUTO) 0.4 % (0-2); EOSINOPHILS % (AUTO) 1.2 % (0-6); HEMATOCRIT 37.4 % (37.9-51.0); LYMPHOCYTES % (AUTO) 15.3 % (13-45); MEAN CORPUSCULAR HEMOGLOBIN 30.2 pg (27.0-33.4); MEAN CORPUSCULAR HGB CONC 34.9 g/dL (32.0-36.0); MEAN CORPUSCULAR VOLUME 87 fl (80-97); MONOCYTES % (AUTO) 6.4 % (3-13); PLATELET COUNT 340 10^3/uL (150-450); RED BLOOD COUNT 4.32 10^6/uL (4.35-5.55); RED CELL DISTRIBUTION WIDTH 17.2 % (11.5-14.0); SEGMENTED NEUTROPHILS % (AUTO) 76.7 % (42-78); TOTAL CELLS COUNTED % (AUTO) 100 %; WHITE BLOOD COUNT 6.4 10^3/uL (4.0-10.5)
[2020-03-03 01:17] LABS: APPEARANCE,URINE CLEAR; BILIRUBIN,URINE NEGATIVE (NEGATIVE); COLOR,URINE YELLOW; GLUCOSE, URINE NEGATIVE (NEGATIVE); KETONES,URINE NEGATIVE (NEGATIVE); LEUKOCYTE ESTERASE,URINE NEGATIVE (NEGATIVE); NITRITE,URINE NEGATIVE (NEGATIVE); PROTEIN,URINE NEGATIVE (NEGATIVE); URINE SPECIFIC GRAVITY 1.021; UROBILINOGEN,URINE NEGATIVE mg/dL (<2.0)
[2020-03-03 01:35] LABS: ALBUMIN 3.9 g/dL (3.5-5.0); ALKALINE PHOSPHATASE 78 U/L (38-126); ANION GAP 7 (5-19); ASPARTATE AMINO TRANSFERASE 21 U/L (17-59); BILIRUBIN,TOTAL 0.4 mg/dL (0.2-1.3); BLOOD UREA NITROGEN 17 mg/dL (7-20); CALCIUM 9.6 mg/dL (8.4-10.2); CARBON DIOXIDE 28 mmol/L (22-30); CHLORIDE 100 mmol/L (98-107); GLUCOSE 110 mg/dL (75-110); POTASSIUM 5.2 mmol/L (3.6-5.0); TOTAL PROTEIN 7.9 g/dL (6.3-8.2)
--- NOTE | 2020-03-03 02:15 | RADIOLOGY REPORT (SQ) ---
CLINICAL INDICATION: evaluate for incarcerated hernia. . TECHNIQUE: Noncontrast spiral axial CT imaging was obtained of the pelvis with multiplanar reconstructions. This exam was performed according to our departmental dose-optimization program, which includes automated exposure control, adjustment of the mA and/or kV according to patient size and/or use of iterative reconstruction techniques. COMPARISON: Abdomen pelvis of September 23, 2019. CORRELATION: Scrotal sonography 05/15/2020 and report of same. FINDINGS: Imaging obtained from L3 through proximal thigh.. Significant right hydronephrosis is identified. No obvious hydroureter. This was present previously. It does appear to be progressive. There is significant cortical loss consistent with chronicity. Likely UPJ obstruction. Visualized portion of the liver appears heterogeneous. The bowel is nonobstructed. There is motion artifact. Moderate hard stool within the colon. Pelvic contents are unremarkable. Vascular calcification is seen. No evidence of inguinal hernia, the reported clinical concern. Scrotal edema is noted. Please see report of ultrasound. IMPRESSION: No evidence of hernia, the reported clinical concern. Progressive right hydronephrosis. Presumed UPJ obstruction. There is significant loss of the right renal parenchyma. .
--- NOTE | 2020-03-03 02:41 | PDOC CONSULTATION ---
Consultation Consult Date: 03/03/20 Provider Consulted: NALDO FERRELL Consult reason:: Evaluate testicular swelling History of Present Illness Admission Date/PCP: NEELAM POLANCO DO History of Present Illness: JOEL OLSON I is a 64 year old male presenting with scrotal swelling for the last 2 weeks. He has had associated severe pain. He noted that he had bilateral scrotal swelling initially but the right side subsided over the course of a week. The left side has been persistently swollen and painful. He had been seen at an urgent care center about 2 days into his symptoms and was prescribed antibiotics. Although the right side improved, the left side has been persistent and he subsequently came into the emergency department tonight. He states that he did not have any acute worsening tonight. The pain and swelling has been persistent for 2 weeks. He denies any nausea or vomiting. He states that he has had a left inguinal hernia repair in the remote past. Patient does note that he has had a small right testicle ever since having "epididymitis" in 1976. Past Surgical History Past Surgical History: Reports: Appendectomy, Cholecystectomy - Via midline exploratory laparotomy., Other - Left inguinal hernia repair in the remote past Social History Smoking Status: Current Every Day Smoker Frequency of Alcohol Use: Social - States that he drinks couple of beers were couple shots of liquor per week. Hx Recreational Drug Use: No Family History Family History: Reviewed & Not Pertinent Parental Family History Reviewed: Yes Children Family History Reviewed: Yes Sibling(s) Family History Reviewed.: Yes Medication/Allergy Home Medications: No Home Medications 10/18/17 Allergies/Adverse Reactions: No Known Allergies Allergy (Verified 08/02/16 00:53) Physical Exam Vital Signs: Temp Pulse Resp BP Pulse Ox 98.5 F 105 H 18 124/74 99 03/02/20 22:40 03/02/20 21:44 03/02/20 21:44 03/02/20 21:44 03/02/20 21:44 Intake & Output 03/01/20 03/02/20 03/03/20 06:59 06:59 06:59 Weight 88.3 kg General appearance: PRESENT: no acute distress, cooperative Respiratory exam: PRESENT: clear to auscultation darline Cardiovascular exam: PRESENT: RRR GI/Abdominal exam: PRESENT: other - Soft, nondistended, nontender to palpation. Small umbilical hernia. Well-healed midline abdominal scar. No groin swelling. Gentrourinary exam: PRESENT: other - Patient has marked left scrotal swelling with edema and tenderness with a sense of a large mass on the left side. The right scrotum feels normal and I feel what seems to be an atrophied right t esticle with no tenderness and a normal feeling right-sided cord. Neurological exam: PRESENT: alert, awake Psychiatric exam: PRESENT: appropriate affect Results Laboratory Results: 03/03/20 00:54 03/03/20 00:54 03/03/20 03/03/20 03/03/20 00:43 00:54 00:54 WBC 6.4 RBC 4.32 L Hgb 13.0 L Hct 37.4 L MCV 87 MCH 30.2 MCHC 34.9 RDW 17.2 H Plt Count 340 Seg Neutrophils % 76.7 Sodium 135.4 L Potassium 5.2 H Chloride 100 Carbon Dioxide 28 Anion Gap 7 BUN 17 Creatinine 0.85 Est GFR ( Amer) > 60 Glucose 110 Calcium 9.6 Total Bilirubin 0.4 AST 21 Alkaline Phosphatase 78 Total Protein 7.9 Albumin 3.9 Urine Color YELLOW Urine Appearance CLEAR Urine pH 5.0 Ur Specific [place] 1.021 Urine Protein NEGATIVE Urine Glucose (UA) NEGATIVE Urine Ketones NEGATIVE Urine Blood NEGATIVE Urine Nitrite NEGATIVE Ur Leukocyte Esterase NEGATIVE Urine WBC (Auto) 0 Urine RBC (Auto) 0 Impressions: Scrotum Ultrasound 03/02/20 22:48 IMPRESSION: Minimal blood flow was seen within the testicles with color Doppler. Chronic or intermittent bilateral testicular torsion must be considered. Neoplasm is unlikely. Inhomogeneous testicles, with macrocalcifications, right side more apparent than left. These could represent dystrophic calcifications, secondary to chronic/intermittent torsion or old infection. Possible left-sided epididymitis. Complex bilateral hydroceles. Right-sided varicocele. copyright 2010 [employer]- All Rights Reserved Pelvis CT 03/03/20 01:08 IMPRESSION: No evidence of hernia, the reported clinical concern. Progressive right hydronephrosis. Presumed UPJ obstruction. There is significant loss of the right renal parenchyma. . Assessment & Plan - Diagnosis (1) Left testicular torsion Is this a current diagnosis for this admission?: Yes Plan: History is suggestive of an acute event 2 weeks ago. Exam and history is suspicious for left ischemic orchitis. Radiologist note diminished flow in bilateral testicles and he states that he cannot exclude an acute event. There is no evidence of a inguinal hernia. Strongly recommend urgent transfer to a center with urology. Discussed with ER physician.
[2020-03-03] MEDS ORDERED: NORMAL SALINE 1000 ML 1,000 ML IV ONE (02:49)
--- NOTE | 2020-03-03 03:04 | ER Document Report ---
Entered by ABDULLAHI HOWELL SCRIBE 03/02/20 2346 Acting as scribe for:IVAN OTOOLE DO ED GI/ - General Chief Complaint: Testicular Pain Stated Complaint: TESTICULAR SWELLING Time Seen by Provider: 03/02/20 22:48 Primary Care Provider: NEELAM POLANCO DO [Primary Care Provider] - Follow up as needed Mode of Arrival: Ambulatory Information source: Patient Notes: This 64 year old male patient presents to the emergency department today with complaints of bilateral testicular swelling and pain for the last few weeks. Patient states that he has been seen by [facility] twice for this in the past, on 02/10 he was put on Cipro for this, he was seen again by [facility] on 02/21 who then started sulfa. Patient states he has had a right inguinal hernia repair as well as epididymitis in the remote past. 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 Patient reports turning again with excruciating bilateral testicular pain and swelling. Patient reports that he has been icing his testicles and keeping them elevated at home with minimal to no relief. TRAVEL OUTSIDE OF THE [place] IN LAST 30 DAYS: No - Related Data Allergies/Adverse Reactions: No Known Allergies Allergy (Verified 08/02/16 00:53) Home Medications: Sulfa Past Medical History - General Information source: Patient - Social History Smoking Status: Unknown if Ever Smoked Cigarette use (# per day): No Frequency of alcohol use: None Drug Abuse: None Occupation: [employer] Family History: Reviewed & Not Pertinent Patient has homicidal ideation: No Renal/ Medical History: Reports: Hx Benign Prostatic Hyperplasia, Hx Epididym itis, Hx Hydrocele, Hx Kidney Stones Past Surgical History: Reports: Hx Appendectomy, Hx Cholecystectomy, Hx Herniorrhaphy - right inguinal repaired, Hx Nose Surgery - Immunizations Hx Diphtheria, Pertussis, Tetanus Vaccination: Yes Review of Systems - Review of Systems Constitutional: No symptoms reported EENT: No symptoms reported Cardiovascular: No symptoms reported Respiratory: No symptoms reported Gastrointestinal: No symptoms reported Genitourinary: No symptoms reported Male Genitourinary: See HPI, Testicular pain Musculoskeletal: No symptoms reported Skin: No symptoms reported Hematologic/Lymphatic: No symptoms reported Neurological/Psychological: No symptoms reported -: Yes All other systems reviewed and negative Physical Exam - Vital signs Vitals: Temp Pulse Resp BP Pulse Ox 98.5 F 105 H 18 124/74 99 03/02/20 21:44 03/02/20 21:44 03/02/20 21:44 03/02/20 21:44 03/02/20 21:44 Interpretation: Normal - General General appearance: Appears well, Alert - HEENT Head: Normocephalic, Atraumatic Eyes: Normal Pupils: PERRL - Respiratory Respiratory status: No respiratory distress Chest status: Nontender Breath sounds: Normal Chest palpation: Normal - Cardiovascular Rhythm: Regular Heart sounds: Normal auscultation Murmur: No - Abdominal Inspection: Normal Distension: No distension Bowel sounds: Normal Tenderness: Nontender Organomegaly: No organomegaly - Genitourinary Tenderness: Testicle tender Scrotum: Swelling - L>R. No: Redness, Hot to touch - Back Back: Normal, Nontender - Extremities General upper extremity: Normal inspection, Nontender, Normal color, Normal ROM, Normal temperature General lower extremity: Normal inspection, Nontender, Normal color, Normal ROM, Normal temperature, Normal weight bearing. No: Shorty's sign - Neurological Neuro grossly intact: Yes Cognition: Normal Orientation: AAOx4 [place] Coma Scale Eye Opening: Spontaneous [place] Coma Scale Verbal: Oriented [place] Coma Scale Motor: Obeys Commands [place] Coma Scale Total: 15 Speech: Normal Motor strength normal: LUE, RUE, LLE, RLE Sensory: Normal - Psychological Associated symptoms: Normal affect, Normal mood - Skin Skin Temperature: Warm Skin Moisture: Dry Skin Color: Normal Course - Re-evaluation Re-evalutation: 03/03/20 00:58 Called [facility]. Urologist will call back. 03/03/20 01:08 Spoke to surgery, Dr. Lea requests a CT scan for evaluation of possible incarcerated hernia. 03/03/20 01:13 Urologist returned call. States to call him after CT is back, but based on history states unlikely acute torsion and can see in the office in the morning if CT with no new findings. 03/03/20 02:14 Dr. Lea has been down to see the patient. Concern for torsion. Does not think that this is a incarcerated hernia. Spoke with radiologist and CT is concerning for torsion in combination with ultrasound. Question right testicular atrophy previously. Call placed back to [facility] to page urology for transfer tonight. 02:[address] Khan who will accept the patient in transfer tonight. 03/03/20 02:32 Spoke with patient who would prefer that his daughter drive him off to [facility]. He does not want to go by ambulance. He is currently talking to his daughter on the phone about this. I have explained the concern of the radiologist surgeon and myself that he is having a problem with a torsion of his left testicle. 03/03/20 02:48 Spoke with patient and daughter. Patient will go by ambulance to [facility] emergency department. He is n.p.o. at this time. Stable for transfer. - Vital Signs Vital signs: Temp Pulse Resp BP Pulse Ox 98.5 F 105 H 18 124/74 99 03/02/20 22:40 03/02/20 21:44 03/02/20 21:44 03/02/20 21:44 03/02/20 21:44 - Laboratory Result Diagrams: 03/03/20 00:54 03/03/20 00:54 Laboratory results interpreted by me: 03/03/20 03/03/20 03/03/20 00:54 00:54 00:54 RBC 4.32 L Hgb 13.0 L Hct 37.4 L RDW 17.2 H APTT 40.6 H Sodium 135.4 L Potassium 5.2 H - Diagnostic Test Radiology reviewed: Image reviewed, Reports reviewed Critical Care Note - Critical Care Note Total time excluding time spent on procedures (mins): 90 - Evaluation and management of testicular pain with probable torsion, coordination with specialist, coordination of transfer, counseling patient Discharge - Discharge Clinical Impression: Testicle pain, Left testicular torsion Condition: Stable Disposition: [facility] Referrals: NEELAM POLANCO DO [Primary Care Provider] - Follow up as needed I personally performed the services described in the documentation, reviewed and edited the documentation which was dictated to the scribe in my presence, and it accurately records my words and actions.
[2020-03-03 03:32] VITALS: BP 123/80
== END 2020-03-03 03:39 | disposition short-term general hospital (02) ==
LOC: ER 21:37
DX: N44.00 Torsion of testis, unspecified (principal); N50.811 Right testicular pain; N50.812 Left testicular pain; Z87.19 Personal history of other diseases of the digestive system; Z98.890 Other specified postprocedural states; Z88.2 Allergy status to sulfonamides
CPT/HCPCS: 99291; 99292; 36415; 85025; 85730; 80053; 81001; 76870; 93976; 72192; J7030